=== PATIENT | male | born 1980 | race African-American/Black ===

== ENCOUNTER 2017-12-08 07:22 | Emergency (ER) | payer SELFPAY ==
[2017-12-08 07:32] VITALS: BP 146/81
[2017-12-08] MEDS ORDERED: KETOROLAC TROMETHAMINE 60 MG/2 ML SDV IM ONE (08:56)
--- NOTE | 2017-12-08 09:00 | ER Document Report ---
ED General - General Chief Complaint: Toothache Stated Complaint: MOUTH PAIN Time Seen by Provider: 12/08/17 07:56 Mode of Arrival: Ambulatory Information source: Patient TRAVEL OUTSIDE OF THE [place] IN LAST 30 DAYS: No - HPI Notes: 37-year-old male presents today with complaints of a toothache that started 2 days ago.pain is 6/10, achy and throbbing with eating. denies any fevers or chills. denies cp, sob, n/v/d, blurred vision, double vision. does not have a dentist. better with advil, worse with eating hard foods. reports cold sensitivity. No throat swelling and difficulty tolerating secretions. Denies fevers, chills, chest pain,palpitations, shortness of breath, dyspnea, nausea , vomiting, diarrhea, abdominal pain, hematuria,blurred vision, double vision, loss of vision, speech changes, LH, dizziness, syncope, headaches, wheezing, ST , URI, neck pain, weakness, bowel or bladder dysfunction, saddle anesthesia, numbness or tingling in bilateral upper or lower extremities equally, muscle - Related Data Allergies/Adverse Reactions: No Known Allergies Allergy (Unverified 10/28/11 03:18) Past Medical History - General Information source: Patient - Social History Smoking Status: Never Smoker Chew tobacco use (# tins/day): No Frequency of alcohol use: None Drug Abuse: None Family History: Reviewed & Not Pertinent Patient has suicidal ideation: No Patient has homicidal ideation: No - Past Medical History Cardiac Medical History: Reports: Hx Atrial Fibrillation Pulmonary Medical History: Reports: Hx Asthma Denies: Hx Tuberculosis Neurological Medical History: Denies: Hx Seizures Renal/ Medical History: Denies: Hx Peritoneal Dialysis GI Medical History: Denies: Hx Ulcer Past Surgical History: Reports: Hx Cholecystectomy. Denies: Hx Pacemaker - Immunizations Hx Diphtheria, Pertussis, Tetanus Vaccination: Yes Review of Systems - Review of Systems Notes: REVIEW OF SYSTEMS: CONSTITUTIONAL : Denies fever, chills, or sweats. Denies recent illness. EENT: + dental pain Denies eye, ear, throat, or mouth pain or symptoms. Denies nasal or sinus congestion or discharge. Denies throat, tongue, or mouth swelling or difficulty swallowing. CARDIOVASCULAR: Denies chest pain. Denies palpitations or racing or irregular heart beat. Denies ankle edema. RESPIRATORY: Denies cough, cold, or chest congestion. Denies shortness of breath, difficulty breathing, or wheezing. GASTROINTESTINAL: Denies abdominal pain or distention. Denies nausea, vomiting , or diarrhea. Denies blood in vomitus, stools, or per rectum. Denies black, tarry stools. Denies constipation. GENITOURINARY: Denies difficulty urinating, painful urination, burning, frequency, blood in urine, or discharge. MUSCULOSKELETAL: Denies back or neck pain or stiffness. Denies joint pain or swelling. SKIN: Denies rash, lesions or sores. HEMATOLOGIC : Denies easy bruising or bleeding. LYMPHATIC: Denies swollen, enlarged glands. NEUROLOGICAL: Denies confusion or altered mental status. Denies passing out or loss of consciousness. Denies dizziness or lightheadedness. Denies headache. Denies weakness or paralysis or loss of use of either side. Denies problems with gait or speech. Denies sensory loss, numbness, or tingling. Denies seizures. PSYCHIATRIC: Denies anxiety or stress. Denies depression, suicidal ideation, or homicidal ideation. ALL OTHER SYSTEMS REVIEWED AND NEGATIVE. Dictation was performed using [employer] voice recognition software PHYSICAL EXAMINATION: GENERAL: Well-appearing, well-nourished and in no acute distress. HEAD: Atraumatic, normocephalic. EYES: Pupils equal round and reactive to light, extraocular movements intact, sclera anicteric, conjunctiva are normal. ENT: Nares patent, oropharynx clear without exudates. Moist mucous membranes. # 29 gingiva with swelling, erythema and induration. No drainage or open wounds. No fluctuance. No facial swelling. Poor oral dentition, right lower jaw with extensive dental caries, no definite swelling or effusion. NECK: Normal range of motion, supple without lymphadenopathy LUNGS: Breath sounds clear to auscultation bilaterally and equal. No wheezes rales or rhonchi. HEART: Regular rate and rhythm without murmurs ABDOMEN: Soft, nontender, nondistended abdomen. No guarding, no rebound. No masses appreciated. Musculoskeletal: Normal range of motion, no pitting or edema. No cyanosis. NEUROLOGICAL: Cranial nerves grossly intact. Normal speech, normal gait. Normal sensory, motor exams PSYCH: Normal mood, normal affect. SKIN: Warm, Dry, normal turgor, no rashes or lesions noted. Physical Exam - Vital signs Vitals: Temp Pulse Resp BP Pulse Ox 98.8 F 51 L 16 146/81 H 98 12/08/17 07:30 12/08/17 07:30 12/08/17 07:30 12/08/17 07:30 12/08/17 07:30 Course - Re-evaluation Re-evalutation: Healthy 37 with complaints of toothache. Vitals are stable patient is afebrile. discussed with patient that he has had long-standing decay, that he needs to follow-up with his dentist. Patient given antibiotic and pain medication. Denies patient to use salt water gargles. Patient given list of dentists to follow-up with. Advised take [id number] ibuprofen and Tylenol for pain. Patient given 60 mg IM of Toradol here. All questions and concerns answered by this provider. Patient verbalized understanding of plan of care and agree with plan of care. Patient discharged home. After performing a Medical Screening Examination, I estimate there is LOW risk for a DEEP SPACE INFECTION (e.g., AMIRA'S ANGINA OR RETROPHARYNGEAL ABSCESS), MENINGITIS, INTRACRANIAL HEMORRHAGE, or AIRWAY COMPROMISE, thus I consider the discharge disposition reasonable. Also, there is no evidence or peritonitis, sepsis, or toxicity. I have reevaluated this patient multiple times and no significant life threatening changes are noted. The patient and I have discussed the diagnosis and risks, and we agree with discharging home with close follow-up with the understanding that symptoms and presentations can change. We also discussed returning to the Emergency Department immediately if new or worsening symptoms occur. We have discussed the symptoms which are most concerning (e.g., changing or worsening pain, trouble swallowing or breathing, neck stiffness or fever) that necessitate immediate return. 12/08/17 18:31 - Vital Signs Vital signs: Temp Pulse Resp BP Pulse Ox 98.8 F 51 L 16 146/81 H 98 12/08/17 07:30 12/08/17 07:30 12/08/17 07:30 12/08/17 07:30 12/08/17 07:30 Discharge - Discharge Clinical Impression: Dental caries Condition: Good Disposition: HOME, SELF-CARE Instructions: Caring Count Includes [facility], Clindamycin ([facility]), Dentist, Toothache ( [facility]) Additional Instructions: *You have been evaluated for dental pain *Take medications as prescribed *Follow up with dentist *Return to ED for worsening condition, changes, needs Follow-up with a dentist within 3 days. Take antibiotic and meloxicam with food. Do not take any other NSAIDs. Warm compress to site 20 minutes on 20 minutes off several times a day. Take ibuprofen and Tylenol as needed for pain or fevers. Follow-up with PCP within 3 days. return to the emergency room if you experience any but not limited to fevers, chills, chest pain,palpitations, shortness of breath, dyspnea, nausea, vomiting, diarrhea, abdominal pain, hematuria,blurred vision, double vision, loss of vision, speech changes, LH, dizziness, syncope, headaches, wheezing, ST, URI, neck pain, weakness, bowel or bladder dysfunction, saddle anesthesia, numbness or tingling in bilateral upper or lower extremities equally, muscle paralysis, weakness in bilateral upper or lower extremities equally or rash. Return immediately for any new or worsening symptoms. Follow up with primary care provider, call tomorrow to make followup appointment. Prescriptions: Clindamycin HCl 300 mg PO Q6H #28 capsule Meloxicam 7.5 mg PO DAILY #7 tablet Forms: Return to Work Referrals: VENUS LUU MD [NO LOCAL MD] - Follow up as needed
== END 2017-12-08 09:15 | disposition home or self-care (01) ==
LOC: ER 07:22
DX: K02.9 Dental caries, unspecified (principal); I48.91 Unspecified atrial fibrillation; Z90.49 Acquired absence of other specified parts of digestive tract
CPT/HCPCS: 99282; 96372; J1885